=== PATIENT | male | born 1960 | race Caucasian/White ===

== ENCOUNTER 2017-01-11 17:14 | Emergency (ER) | payer OTHER ==
[~2017-01-11] VITALS: Ht 180.3 cm; Wt 100.0 kg
[2017-01-11] MEDS ORDERED: IBUP-2071 PO (17:24)
[2017-01-11] MEDS ORDERED: [UNRECOGNIZED DRUG - CODE] PO (17:24)
[2017-01-11] MEDS ORDERED: KETOROLAC TROMETHAMINE 60 MG/2 ML VIAL IM ONE (18:45)
[2017-01-11 19:27] VITALS: BP 136/82
== END 2017-01-11 19:31 | disposition home or self-care (01) ==
LOC: EMS 17:16
DX: M54.31 Sciatica, right side (principal)
CPT/HCPCS: 96372; 99283; J1885

== ENCOUNTER 2017-12-02 05:55 | Inpatient (IN) | payer MEDICAID, OTHER ==
[~2017-12-02] VITALS: Ht 179.1 cm; Wt 93.4 kg
[~2017-12-02 05:55] MED LIST: IBUP-2071 PO; [UNRECOGNIZED DRUG - CODE] PO
[2017-12-02] MEDS ORDERED: PARO20TA24 PO (06:05)
[2017-12-02] MEDS ORDERED: TRAZ-220 PO (06:06)
[2017-12-02 06:48] LABS: BASOPHILS % (AUTO) 0.5 % (0.0-2.0); HEMATOCRIT 38.8 % (41-53); HEMOGLOBIN 14.2 g/dL (13.5-17.5); LYMPHOCYTES # (AUTO) 0.6 K/uL (1.0-4.8); LYMPHOCYTES % (AUTO) 12.3 % (22.0-44.0); MEAN CORPUSCULAR HEMOGLOBIN 32.1 pg (26.0-34.0); MEAN CORPUSCULAR HGB CONC 36.6 G/dL (31.0-37.0); MEAN CORPUSCULAR VOLUME 88 fL (80-100); MONOCYTES # (AUTO) 0.4 K/uL (0.1-1.0); MONOCYTES % (AUTO) 8.2 % (2.0-9.0); NEUTROPHILS # (AUTO) 3.7 K/uL (1.8-7.7); PLATELET COUNT (AUTO) 171 K/uL (150-450); RED BLOOD CELL COUNT(AUTO) 4.41 MIL/uL (4.50-5.90); RED CELL DISTRIBUTION WIDTH 13.3 % (11.5-14.5)
[2017-12-02 07:09] LABS: AMPHET/METH SCREEN,URINE NEGATIVE (NEGATIVE); BARBITURATE SCREEN, URINE NEGATIVE (NEGATIVE); BENZODIAZEPINES SCREEN,URINE NEGATIVE (NEGATIVE); CANNABINOID SCREEN,URINE NEGATIVE (NEGATIVE); COCAINE SCREEN,URINE NEGATIVE (NEGATIVE); METHADONE SCREEN, URINE NEGATIVE (NEGATIVE); OPIATE SCREEN,URINE NEGATIVE (NEGATIVE)
[2017-12-02 07:10] LABS: PHENCYCLIDINE SCREEN,URINE NEGATIVE (NEGATIVE)
[2017-12-02 07:14] LABS: ANION GAP 12 mmol/L (8-16); CALCIUM, TOTAL 8.8 mg/dL (8.8-10.5); CARBON DIOXIDE 24 mmol/L (22-29); CHLORIDE 98 mmol/L (98-107); CREATININE 1.16 mg/dL (0.60-1.30); GLOMERULAR FILTR. RATE CALC > 60 mL/min (>60); GLUCOSE,RANDOM 120 mg/dL (70-110); POTASSIUM 3.4 mmol/L (3.5-5.1); SODIUM SERUM 134 mmol/L (136-145); UREA NITROGEN, BLOOD 6 mg/dL (7-18)
[2017-12-02 07:20] LABS: ALANINE AMINOTRANSFERASE 16 U/L (12-78); ALBUMIN 3.7 g/dL (3.4-5.0); ALKALINE PHOSPHATASE 48 U/L (46-116); ASPARTATE AMINOTRANSFERASE 30 U/L (15-37); BILIRUBIN,TOTAL 0.8 mg/dL (0.1-1.0); TOTAL PROTEIN, SERUM 6.9 g/dL (6.4-8.2)
[2017-12-02] MEDS ORDERED: LORazepam 2 MG TABLET PO ONE (09:00)
[2017-12-02] MEDS ORDERED: PARoxetine HCL 20 MG TABLET PO ONE (09:00)
[2017-12-02] MEDS ORDERED: ZOLPIDEM TARTRATE 10 MG TABLET PO PRN (11:30)
[2017-12-02] MEDS ORDERED: LORazepam 2 MG TABLET PO PRN (11:30)
[2017-12-02] MEDS ORDERED: HALOPERIDOL 5 MG TABLET PO PRN (11:30)
[2017-12-02] MEDS ORDERED: POTASSIUM CHLORIDE 20 MEQ ER TABLET PO ONE (13:00)
[2017-12-02 13:27] VITALS: BP 159/81
[2017-12-02] MEDS ORDERED: ACETAMINOPHEN 325 MG TABLET PO PRN (15:00)
[2017-12-02] MEDS ORDERED: ONDANSETRON HCL 4 MG TABLET PO PRN (15:00)
[2017-12-02] MEDS ORDERED: LOPERAMIDE HCL 2 MG CAPSULE PO PRN (15:00)
[2017-12-02] MEDS ORDERED: MAGNESIUM HYDROXIDE SUSPENSION 30 ML UDCUP PO PRN (15:00)
[2017-12-02] MEDS ORDERED: MAG HYDROX/AL HYDROX/SIMETH ES 30 ML SUSPENSION UDCUP PO PRN (15:00)
[2017-12-02] MEDS ORDERED: PETROLATUM,WHITE 71 GM JELLY TP PRN (15:00)
[2017-12-02] MEDS ORDERED: DOCUSATE SODIUM 100 MG CAPSULE PO PRN (15:00)
[2017-12-02] MEDS ORDERED: ALBUTEROL SULFATE HFA 90 MCG/PUFF 8 GM INHALER IH PRN (15:00)
[2017-12-02] MEDS ORDERED: GuaiFENesin/D-METHORPHAN [SUGAR-FREE] 200-20MG/10 ML SYRUP UDCUP PO PRN (15:00)
[2017-12-02] MEDS ORDERED: CloNIDine HCL 0.1 MG TABLET PO PRN (15:00)
[2017-12-02] MEDS: BusPIRone HCL 5 MG TABLET PO SCH (17:00)
[2017-12-02] MEDS ORDERED: PARoxetine HCL 20 MG TABLET PO SCH (21:00)
[2017-12-02 21:01] VITALS: BP 147/85
[2017-12-02] MEDS: TraZODone HCL 150 MG TABLET PO SCH (21:33)
[2017-12-03 06:39] LABS: BASOPHILS % (AUTO) 0.7 % (0.0-2.0); EOSINOPHILS % (AUTO) 3.9 % (1.0-6.0); HEMATOCRIT 37.8 % (41-53); HEMOGLOBIN 13.7 g/dL (13.5-17.5); LYMPHOCYTES % (AUTO) 19.2 % (22.0-44.0); MEAN CORPUSCULAR HEMOGLOBIN 32.2 pg (26.0-34.0); MEAN CORPUSCULAR HGB CONC 36.4 G/dL (31.0-37.0); MEAN CORPUSCULAR VOLUME 89 fL (80-100); MONOCYTES # (AUTO) 0.5 K/uL (0.1-1.0); MONOCYTES % (AUTO) 9.5 % (2.0-9.0); NEUTROPHILS # (AUTO) 3.6 K/uL (1.8-7.7); NEUTROPHILS % (AUTO) 66.7 % (40.0-70.0); PLATELET COUNT (AUTO) 184 K/uL (150-450); RED BLOOD CELL COUNT(AUTO) 4.26 MIL/uL (4.50-5.90); RED CELL DISTRIBUTION WIDTH 13.7 % (11.5-14.5)
[2017-12-03 07:03] LABS: HEMOGLOBIN A1C 4.9 % (4.5-6.2)
[2017-12-03 07:15] LABS: ALANINE AMINOTRANSFERASE 19 U/L (12-78); ALBUMIN 3.2 g/dL (3.4-5.0); ALKALINE PHOSPHATASE 40 U/L (46-116); ANION GAP 8 mmol/L (8-16); ASPARTATE AMINOTRANSFERASE 17 U/L (15-37); BILIRUBIN,TOTAL 0.3 mg/dL (0.1-1.0); CALCIUM, TOTAL 8.6 mg/dL (8.8-10.5); CARBON DIOXIDE 28 mmol/L (22-29); CHLORIDE 107 mmol/L (98-107); CHOL/HDL RATIO 2.4 (4.2-7.3); CHOLESTEROL 146 mg/dL (131-200); CREATININE 1.08 mg/dL (0.60-1.30); GLOMERULAR FILTR. RATE CALC > 60 mL/min (>60); GLUCOSE,RANDOM 113 mg/dL (70-110); HDL CHOLESTEROL 62 mg/dL (40-60); LDL CHOL (CALC.) 63 mg/dL (0-130); SODIUM SERUM 143 mmol/L (136-145); THYROID STIMULATING HORMONE 1.79 uIU/mL (0.36-3.74); TOTAL PROTEIN, SERUM 5.9 g/dL (6.4-8.2); TRIGLYCERIDES 106 mg/dL (15-150); UREA NITROGEN, BLOOD 9 mg/dL (7-18)
[2017-12-03] MEDS: BusPIRone HCL 5 MG TABLET PO SCH (09:38)
[2017-12-03] MEDS: LORazepam 2 MG TABLET PO PRN ×2 (09:41→16:26)
[2017-12-03 10:18] VITALS: BP 132/84
[2017-12-03] MEDS ORDERED: PARoxetine HCL 20 MG TABLET PO SCH (12:30)
[2017-12-03] MEDS: BusPIRone HCL 10 MG TABLET PO SCH ×2 (13:43→16:26)
[2017-12-03 19:04] VITALS: BP 147/82
[2017-12-03] MEDS: PARoxetine HCL 20 MG TABLET PO SCH (20:33)
[2017-12-03] MEDS: TraZODone HCL 150 MG TABLET PO SCH (21:39)
[2017-12-04] MEDS: BusPIRone HCL 10 MG TABLET PO SCH ×3 (08:48→17:30)
[2017-12-04] MEDS: LORazepam 2 MG TABLET PO PRN ×2 (08:50→16:01)
[2017-12-04] MEDS: NICOTINE 21 MG/24 HOUR PATCH TD SCH (09:00)
[2017-12-04 09:02] VITALS: BP 138/81
[2017-12-04 18:35] VITALS: BP 135/80
[2017-12-04] MEDS: PARoxetine HCL 20 MG TABLET PO SCH (21:25)
[2017-12-04] MEDS: TraZODone HCL 150 MG TABLET PO SCH (21:25)
[2017-12-05] MEDS: BusPIRone HCL 10 MG TABLET PO SCH ×3 (08:58→16:39)
[2017-12-05] MEDS: LORazepam 2 MG TABLET PO PRN ×2 (08:59→16:40)
[2017-12-05] MEDS: NICOTINE 21 MG/24 HOUR PATCH TD SCH (09:00)
[2017-12-05 09:16] VITALS: BP 137/87
[2017-12-05] MEDS: IBUPROFEN 400 MG TABLET PO PRN (14:36)
[2017-12-05] MEDS: PARoxetine HCL 20 MG TABLET PO SCH (14:36)
[2017-12-05 17:32] VITALS: BP 149/89
[2017-12-05] MEDS: TraZODone HCL 150 MG TABLET PO SCH (20:35)
[2017-12-06] MEDS: BusPIRone HCL 10 MG TABLET PO SCH ×3 (08:48→16:56)
[2017-12-06] MEDS: PARoxetine HCL 20 MG TABLET PO SCH (08:48)
[2017-12-06] MEDS: NICOTINE 21 MG/24 HOUR PATCH TD SCH (08:50)
[2017-12-06] MEDS: LORazepam 2 MG TABLET PO PRN ×2 (08:50→17:40)
[2017-12-06 08:59] VITALS: BP 119/78
[2017-12-06] MEDS: IBUPROFEN 400 MG TABLET PO PRN (11:08)
[2017-12-06] MEDS ORDERED: BUSP10TA23 PO (14:51)
[2017-12-06 17:30] VITALS: BP 130/86
[2017-12-06] MEDS: TraZODone HCL 150 MG TABLET PO SCH (20:22)
[2017-12-07] MEDS: PARoxetine HCL 20 MG TABLET PO SCH (09:47)
[2017-12-07] MEDS: BusPIRone HCL 10 MG TABLET PO SCH (09:47)
== END 2017-12-07 07:30 | disposition home or self-care (01) | DRG 751 ==
LOC: EMS 05:55 → 3EI 12:24
PROVIDERS: ADMIT Psychiatry & Neurology Psychiatry; ATTEND Psychiatry & Neurology Psychiatry
DX: F33.2 Major depressive disorder, recurrent severe without psychotic features (principal); R45.851 Suicidal ideations; E88.09 Other disorders of plasma-protein metabolism, not elsewhere classified; F17.200 Nicotine dependence, unspecified, uncomplicated; E87.6 Hypokalemia; F41.9 Anxiety disorder, unspecified; I10 Essential (primary) hypertension; M54.30 Sciatica, unspecified side; Z59.0 Homelessness; Z79.899 Other long term (current) drug therapy; Z81.8 Family history of other mental and behavioral disorders; Z71.6 Tobacco abuse counseling
CPT/HCPCS: 83036; 84443; 99285; G0480

== ENCOUNTER 2018-08-08 18:22 | Inpatient (IN) | payer MEDICAID, OTHER ==
[~2018-08-08] VITALS: Ht 180.3 cm; Wt 87.1 kg
[~2018-08-08 18:22] MED LIST changes: +BUSP10TA23 PO; -IBUP-2071 PO; +PARO20TA24 PO; +TRAZ-220 PO; -[UNRECOGNIZED DRUG - CODE] PO
[2018-08-08] MEDS ORDERED: LORA2TAB2 PO (18:32)
[2018-08-08 18:54] LABS: BASOPHILS % (AUTO) 0.7 % (0.0-2.0); EOSINOPHILS % (AUTO) 0.9 % (1.0-6.0); HEMATOCRIT 37.4 % (41-53); LYMPHOCYTES # (AUTO) 1.4 K/uL (1.0-4.8); LYMPHOCYTES % (AUTO) 18.6 % (22.0-44.0); MEAN CORPUSCULAR HEMOGLOBIN 30.5 pg (26.0-34.0); MEAN CORPUSCULAR HGB CONC 34.9 G/dL (31.0-37.0); MEAN CORPUSCULAR VOLUME 88 fL (80-100); MONOCYTES # (AUTO) 0.6 K/uL (0.1-1.0); MONOCYTES % (AUTO) 8.3 % (2.0-9.0); NEUTROPHILS # (AUTO) 5.2 K/uL (1.8-7.7); NEUTROPHILS % (AUTO) 71.5 % (40.0-70.0); PLATELET COUNT (AUTO) 203 K/uL (150-450); RED BLOOD CELL COUNT(AUTO) 4.27 MIL/uL (4.50-5.90); RED CELL DISTRIBUTION WIDTH 14.2 % (11.5-14.5)
[2018-08-08 19:11] LABS: ANION GAP 7 mmol/L (8-16); CALCIUM, TOTAL 9.1 mg/dL (8.8-10.5); CARBON DIOXIDE 28 mmol/L (22-29); CHLORIDE 97 mmol/L (98-107); CREATININE 1.23 mg/dL (0.60-1.30); GLOMERULAR FILTR. RATE CALC > 60 mL/min (>60); GLUCOSE,RANDOM 116 mg/dL (70-110); SODIUM SERUM 132 mmol/L (136-145); UREA NITROGEN, BLOOD 15 mg/dL (7-18)
[2018-08-08 19:17] LABS: ALANINE AMINOTRANSFERASE 9 U/L (12-78); ALBUMIN 4.1 g/dL (3.4-5.0); ALKALINE PHOSPHATASE 57 U/L (46-116); ASPARTATE AMINOTRANSFERASE 20 U/L (15-37); BILIRUBIN,TOTAL 1.3 mg/dL (0.1-1.0)
[2018-08-08] MEDS ORDERED: LORazepam 2 MG TABLET PO ONE (20:00)
[2018-08-08 21:30] LABS: AMPHET/METH SCREEN,URINE NEGATIVE (NEGATIVE); BARBITURATE SCREEN, URINE NEGATIVE (NEGATIVE); BENZODIAZEPINES SCREEN,URINE NEGATIVE (NEGATIVE); CANNABINOID SCREEN,URINE NEGATIVE (NEGATIVE); COCAINE SCREEN,URINE NEGATIVE (NEGATIVE); METHADONE SCREEN, URINE NEGATIVE (NEGATIVE); OPIATE SCREEN,URINE NEGATIVE (NEGATIVE)
[2018-08-08 21:37] LABS: PHENCYCLIDINE SCREEN,URINE NEGATIVE (NEGATIVE)
[2018-08-09] MEDS: LORazepam 2 MG TABLET PO PRN ×4 (00:08→21:06)
[2018-08-09] MEDS: ZOLPIDEM TARTRATE 10 MG TABLET PO PRN ×2 (00:08→21:06)
[2018-08-09 00:50] VITALS: BP 143/77
[2018-08-09] MEDS ORDERED: GuaiFENesin/D-METHORPHAN [SUGAR-FREE] 200-20MG/10 ML SYRUP UDCUP PO PRN (06:00)
[2018-08-09] MEDS ORDERED: NICOTINE 14 MG/24 HOUR PATCH TD PRN (06:00)
[2018-08-09] MEDS ORDERED: PETROLATUM,WHITE 28 GM JELLY TP PRN (06:00)
[2018-08-09] MEDS ORDERED: CloNIDine HCL 0.1 MG TABLET PO PRN (06:00)
[2018-08-09] MEDS ORDERED: ALBUTEROL SULFATE HFA 90 MCG/PUFF 8 GM INHALER IH PRN (06:00)
[2018-08-09] MEDS ORDERED: LOPERAMIDE HCL 2 MG CAPSULE PO PRN (06:00)
[2018-08-09] MEDS ORDERED: MAG HYDROX/AL HYDROX/SIMETH ES 30 ML SUSPENSION UDCUP PO PRN (06:00)
[2018-08-09] MEDS ORDERED: MAGNESIUM HYDROXIDE SUSPENSION 30 ML UDCUP PO PRN (06:00)
[2018-08-09] MEDS ORDERED: DOCUSATE SODIUM 100 MG CAPSULE PO PRN (06:00)
[2018-08-09] MEDS ORDERED: ONDANSETRON HCL 4 MG TABLET PO PRN (06:00)
[2018-08-09] MEDS ORDERED: ACETAMINOPHEN 325 MG TABLET PO PRN (06:00)
[2018-08-09 09:02] LABS: CHOL/HDL RATIO 2.2 (4.2-7.3)
[2018-08-09 10:13] VITALS: BP 127/93
[2018-08-09] MEDS: PARoxetine HCL 20 MG TABLET PO SCH (12:32)
[2018-08-09] MEDS: BusPIRone HCL 10 MG TABLET PO SCH ×2 (12:33→16:43)
[2018-08-09] MEDS: IBUPROFEN 400 MG TABLET PO PRN (14:26)
[2018-08-09 16:00] VITALS: BP 131/77
[2018-08-09] MEDS: HALOPERIDOL 5 MG TABLET PO PRN (16:43)
[2018-08-10 00:02] VITALS: BP 132/81
[2018-08-10] MEDS: HALOPERIDOL 5 MG TABLET PO PRN ×2 (02:18→23:50)
[2018-08-10] MEDS: LORazepam 2 MG TABLET PO PRN ×4 (02:18→20:17)
[2018-08-10] MEDS: BusPIRone HCL 10 MG TABLET PO SCH ×3 (07:57→17:03)
[2018-08-10] MEDS: PARoxetine HCL 20 MG TABLET PO SCH (07:57)
[2018-08-10 08:39] LABS: BASOPHILS % (AUTO) 0.7 % (0.0-2.0); EOSINOPHILS % (AUTO) 3.4 % (1.0-6.0); HEMATOCRIT 41.8 % (41-53); HEMOGLOBIN 14.1 g/dL (13.5-17.5); LYMPHOCYTES # (AUTO) 1.1 K/uL (1.0-4.8); LYMPHOCYTES % (AUTO) 22.7 % (22.0-44.0); MEAN CORPUSCULAR HEMOGLOBIN 30.3 pg (26.0-34.0); MEAN CORPUSCULAR HGB CONC 33.8 G/dL (31.0-37.0); MEAN CORPUSCULAR VOLUME 90 fL (80-100); MONOCYTES # (AUTO) 0.3 K/uL (0.1-1.0); MONOCYTES % (AUTO) 6.1 % (2.0-9.0); NEUTROPHILS # (AUTO) 3.1 K/uL (1.8-7.7); NEUTROPHILS % (AUTO) 67.1 % (40.0-70.0); PLATELET COUNT (AUTO) 184 K/uL (150-450); RED BLOOD CELL COUNT(AUTO) 4.66 MIL/uL (4.50-5.90); RED CELL DISTRIBUTION WIDTH 14.8 % (11.5-14.5)
[2018-08-10 09:17] LABS: ALANINE AMINOTRANSFERASE 9 U/L (12-78); ALBUMIN 3.8 g/dL (3.4-5.0); ALKALINE PHOSPHATASE 54 U/L (46-116); ANION GAP 11 mmol/L (8-16); ASPARTATE AMINOTRANSFERASE 28 U/L (15-37); BILIRUBIN,TOTAL 1.1 mg/dL (0.1-1.0); CALCIUM, TOTAL 8.9 mg/dL (8.8-10.5); CARBON DIOXIDE 25 mmol/L (22-29); CHLORIDE 101 mmol/L (98-107); CREATININE 1.08 mg/dL (0.60-1.30); GLOMERULAR FILTR. RATE CALC > 60 mL/min (>60); GLUCOSE,RANDOM 133 mg/dL (70-110); POTASSIUM 4.4 mmol/L (3.5-5.1); SODIUM SERUM 137 mmol/L (136-145); THYROID STIMULATING HORMONE 3.03 uIU/mL (0.36-3.74); TOTAL PROTEIN, SERUM 7.2 g/dL (6.4-8.2); UREA NITROGEN, BLOOD 11 mg/dL (7-18)
[2018-08-10 09:37] VITALS: BP 131/83
[2018-08-10 16:32] VITALS: BP 136/82
[2018-08-10] MEDS: IBUPROFEN 400 MG TABLET PO PRN (17:21)
[2018-08-10] MEDS: ZOLPIDEM TARTRATE 10 MG TABLET PO PRN (20:17)
[2018-08-11 00:09] VITALS: BP 126/69
[2018-08-11] MEDS: LORazepam 2 MG TABLET PO PRN ×4 (06:41→19:07)
[2018-08-11] MEDS: BusPIRone HCL 10 MG TABLET PO SCH ×3 (08:10→16:19)
[2018-08-11] MEDS: PARoxetine HCL 20 MG TABLET PO SCH (08:10)
[2018-08-11 08:12] VITALS: BP 115/76
[2018-08-11] MEDS: HALOPERIDOL 5 MG TABLET PO PRN (16:19)
[2018-08-11 16:40] VITALS: BP 136/97
[2018-08-11] MEDS: ZOLPIDEM TARTRATE 10 MG TABLET PO PRN (20:35)
[2018-08-12 01:12] VITALS: BP 119/85
[2018-08-12] MEDS: HALOPERIDOL 5 MG TABLET PO PRN ×2 (01:13→21:00)
[2018-08-12] MEDS: LORazepam 2 MG TABLET PO PRN ×2 (06:38→16:41)
[2018-08-12] MEDS: IBUPROFEN 400 MG TABLET PO PRN (07:09)
[2018-08-12 08:05] VITALS: BP 120/62
[2018-08-12] MEDS: BusPIRone HCL 10 MG TABLET PO SCH (08:17)
[2018-08-12] MEDS: PARoxetine HCL 20 MG TABLET PO SCH (08:17)
[2018-08-12 16:06] VITALS: BP 139/87
[2018-08-12] MEDS: BusPIRone HCL 15 MG TABLET PO SCH ×2 (16:41→21:00)
[2018-08-12] MEDS: ZOLPIDEM TARTRATE 10 MG TABLET PO PRN (21:00)
[2018-08-13] MEDS: LORazepam 2 MG TABLET PO PRN ×4 (00:47→20:04)
[2018-08-13] MEDS: HALOPERIDOL 5 MG TABLET PO PRN ×2 (00:47→07:00)
[2018-08-13 00:49] VITALS: BP 125/81
[2018-08-13] MEDS: PARoxetine HCL 20 MG TABLET PO SCH (08:12)
[2018-08-13] MEDS: BusPIRone HCL 15 MG TABLET PO SCH ×3 (08:13→20:04)
[2018-08-13 08:35] VITALS: BP 128/66
[2018-08-13 16:30] VITALS: BP 120/80
[2018-08-13] MEDS: TraZODone HCL 150 MG TABLET PO SCH (20:04)
[2018-08-14 02:02] VITALS: BP 117/84
[2018-08-14] MEDS: LORazepam 2 MG TABLET PO PRN ×4 (06:00→20:35)
[2018-08-14 08:33] VITALS: BP 114/62
[2018-08-14] MEDS: PARoxetine HCL 20 MG TABLET PO SCH (08:40)
[2018-08-14] MEDS: BusPIRone HCL 15 MG TABLET PO SCH ×3 (08:41→20:38)
[2018-08-14] MEDS: BuPROPion HCL XL 150 MG ER TABLET PO SCH (11:05)
[2018-08-14] MEDS: HALOPERIDOL 5 MG TABLET PO PRN (16:22)
[2018-08-14] MEDS: IBUPROFEN 400 MG TABLET PO PRN (16:22)
[2018-08-14 16:35] VITALS: BP 123/77
[2018-08-14] MEDS: ZOLPIDEM TARTRATE 10 MG TABLET PO PRN (20:35)
[2018-08-14] MEDS: TraZODone HCL 150 MG TABLET PO SCH (20:35)
[2018-08-15] MEDS: LORazepam 2 MG TABLET PO PRN ×3 (05:53→20:27)
[2018-08-15 06:10] VITALS: BP 131/84
[2018-08-15 08:12] VITALS: BP 114/75
[2018-08-15] MEDS: BuPROPion HCL XL 150 MG ER TABLET PO SCH (08:22)
[2018-08-15] MEDS: PARoxetine HCL 20 MG TABLET PO SCH (08:22)
[2018-08-15] MEDS: BusPIRone HCL 15 MG TABLET PO SCH ×3 (08:22→20:27)
[2018-08-15] MEDS: IBUPROFEN 400 MG TABLET PO PRN (10:26)
[2018-08-15 16:00] VITALS: BP 120/88
[2018-08-15] MEDS: ZOLPIDEM TARTRATE 10 MG TABLET PO PRN (20:27)
[2018-08-15] MEDS: TraZODone HCL 150 MG TABLET PO SCH (20:27)
[2018-08-15] MEDS ORDERED: TAMSULOSIN HCL 0.4 MG CAPSULE PO SCH (21:00)
[2018-08-16 00:07] VITALS: BP 115/78
[2018-08-16] MEDS: LORazepam 2 MG TABLET PO PRN ×2 (05:41→11:46)
[2018-08-16] MEDS: BusPIRone HCL 15 MG TABLET PO SCH (08:10)
[2018-08-16] MEDS: PARoxetine HCL 20 MG TABLET PO SCH (08:10)
[2018-08-16 08:19] VITALS: BP 119/64
[2018-08-16] MEDS ORDERED: BuPROPion HCL XL 150 MG ER TABLET PO SCH (09:00)
[2018-08-16] MEDS ORDERED: BUPR-47 PO (10:09)
[2018-08-16] MEDS ORDERED: PARO-37 PO (10:09)
[2018-08-16] MEDS ORDERED: BUPR-93 PO (10:31)
[2018-08-16] MEDS ORDERED: BUSP15 PO ×2 (10:31→13:39)
[2018-08-16] MEDS ORDERED: PARO20TA24 PO (10:42)
[2018-08-16] MEDS ORDERED: TAMS-1 PO (10:43)
[2018-08-16] MEDS ORDERED: TRAZ150 PO (13:39)
== END 2018-08-16 16:20 | disposition home or self-care (01) | DRG 751 ==
LOC: EMS 18:23 → B3A 20:52
DX: F33.2 Major depressive disorder, recurrent severe without psychotic features (principal); E87.1 Hypo-osmolality and hyponatremia; R45.851 Suicidal ideations; D64.9 Anemia, unspecified; R17 Unspecified jaundice; F41.9 Anxiety disorder, unspecified; F19.10 Other psychoactive substance abuse, uncomplicated; Z59.0 Homelessness; Z79.899 Other long term (current) drug therapy; Z71.51 Drug abuse counseling and surveillance of drug abuser
CPT/HCPCS: 83036; 84443; G0480

== ENCOUNTER 2018-12-31 07:36 | Inpatient (IN) | payer MEDICAID ==
[~2018-12-31] VITALS: Ht 180.3 cm; Wt 84.7 kg
[~2018-12-31 07:36] MED LIST changes: +BUPR-47 PO; +BUPR-93 PO; -BUSP10TA23 PO; +BUSP15 PO; +PARO-37 PO; +TAMS-1 PO; -TRAZ-220 PO; +TRAZ150 PO
[2018-12-31 09:50] LABS: BASOPHILS % (AUTO) 0.6 % (0.0-2.0); EOSINOPHILS % (AUTO) 0.7 % (1.0-6.0); HEMATOCRIT 39.8 % (41-53); HEMOGLOBIN 13.4 g/dL (13.5-17.5); LYMPHOCYTES # (AUTO) 0.7 K/uL (1.0-4.8); LYMPHOCYTES % (AUTO) 13.4 % (22.0-44.0); MEAN CORPUSCULAR HEMOGLOBIN 30.8 pg (26.0-34.0); MEAN CORPUSCULAR HGB CONC 33.8 G/dL (31.0-37.0); MEAN CORPUSCULAR VOLUME 91 fL (80-100); MONOCYTES # (AUTO) 0.3 K/uL (0.1-1.0); MONOCYTES % (AUTO) 5.9 % (2.0-9.0); NEUTROPHILS % (AUTO) 79.4 % (40.0-70.0); PLATELET COUNT (AUTO) 151 K/uL (150-450); RED BLOOD CELL COUNT(AUTO) 4.37 MIL/uL (4.50-5.90); RED CELL DISTRIBUTION WIDTH 13.8 % (11.5-14.5)
[2018-12-31 10:00] LABS: AMPHET/METH SCREEN,URINE NEGATIVE (NEGATIVE); BARBITURATE SCREEN, URINE NEGATIVE (NEGATIVE); BENZODIAZEPINES SCREEN,URINE NEGATIVE (NEGATIVE); CANNABINOID SCREEN,URINE NEGATIVE (NEGATIVE); COCAINE SCREEN,URINE NEGATIVE (NEGATIVE); METHADONE SCREEN, URINE NEGATIVE (NEGATIVE); OPIATE SCREEN,URINE NEGATIVE (NEGATIVE)
[2018-12-31 10:01] LABS: PHENCYCLIDINE SCREEN,URINE NEGATIVE (NEGATIVE)
[2018-12-31 10:02] LABS: ANION GAP 8 mmol/L (8-16); CALCIUM, TOTAL 9.1 mg/dL (8.8-10.5); CARBON DIOXIDE 25 mmol/L (22-29); CHLORIDE 105 mmol/L (98-107); GLOMERULAR FILTR. RATE CALC > 60 mL/min (>60); GLUCOSE,RANDOM 120 mg/dL (70-110); POTASSIUM 3.8 mmol/L (3.5-5.1); SODIUM SERUM 138 mmol/L (136-145); UREA NITROGEN, BLOOD 7 mg/dL (7-18)
[2018-12-31 10:08] LABS: ALANINE AMINOTRANSFERASE 13 U/L (12-78); ALBUMIN 3.8 g/dL (3.4-5.0); ALKALINE PHOSPHATASE 47 U/L (46-116); ASPARTATE AMINOTRANSFERASE 15 U/L (15-37); BILIRUBIN,TOTAL 0.6 mg/dL (0.1-1.0); TOTAL PROTEIN, SERUM 6.7 g/dL (6.4-8.2)
[2018-12-31] MEDS ORDERED: LORazepam 2 MG TABLET PO PRN (10:45)
[2018-12-31] MEDS ORDERED: LORazepam 1 MG TABLET PO ONE (12:00)
[2018-12-31 14:45] VITALS: BP 144/87
[2018-12-31 16:27] VITALS: BP 130/83
[2018-12-31] MEDS: HALOPERIDOL 5 MG TABLET PO PRN (17:20)
[2018-12-31] MEDS ORDERED: RIZATRIPTAN BENZOATE 10 MG TABLET PO PRN (17:30)
[2018-12-31] MEDS ORDERED: MAGNESIUM HYDROXIDE SUSPENSION 30 ML UDCUP PO PRN (19:45)
[2018-12-31] MEDS ORDERED: NICOTINE 14 MG/24 HOUR PATCH TD PRN (19:45)
[2018-12-31] MEDS ORDERED: ONDANSETRON HCL 4 MG TABLET PO PRN (19:45)
[2018-12-31] MEDS ORDERED: DOCUSATE SODIUM 100 MG CAPSULE PO PRN (19:45)
[2018-12-31] MEDS ORDERED: ACETAMINOPHEN 325 MG TABLET PO PRN (19:45)
[2018-12-31] MEDS ORDERED: GuaiFENesin/D-METHORPHAN [SUGAR-FREE] 200-20MG/10 ML SYRUP UDCUP PO PRN (19:45)
[2018-12-31] MEDS ORDERED: MAG HYDROX/AL HYDROX/SIMETH ES 30 ML SUSPENSION UDCUP PO PRN (19:45)
[2018-12-31] MEDS ORDERED: CloNIDine HCL 0.1 MG TABLET PO PRN (19:45)
[2018-12-31] MEDS ORDERED: ALBUTEROL SULFATE HFA 90 MCG/PUFF 8 GM INHALER IH PRN (19:45)
[2018-12-31] MEDS ORDERED: PETROLATUM,WHITE 28 GM JELLY TP PRN (19:45)
[2018-12-31] MEDS ORDERED: LOPERAMIDE HCL 2 MG CAPSULE PO PRN (19:45)
[2018-12-31] MEDS ORDERED: IBUPROFEN 400 MG TABLET PO PRN (19:45)
[2018-12-31] MEDS: TAMSULOSIN HCL 0.4 MG CAPSULE PO SCH (20:28)
[2018-12-31] MEDS: ZOLPIDEM TARTRATE 10 MG TABLET PO PRN (20:28)
[2018-12-31] MEDS ORDERED: TAMSULOSIN HCL 0.4 MG CAPSULE PO SCH (21:00)
[2019-01-01 06:41] VITALS: BP 132/79
[2019-01-01 08:28] LABS: HEMOGLOBIN A1C 5.1 % (4.5-6.2)
[2019-01-01 08:31] LABS: CHOL/HDL RATIO 2.6 (4.2-7.3); THYROID STIMULATING HORMONE 1.27 uIU/mL (0.36-3.74)
[2019-01-01] MEDS: RANITIDINE HCL 150 MG TABLET PO SCH (08:33)
[2019-01-01] MEDS: PARoxetine HCL 20 MG TABLET PO SCH (11:07)
[2019-01-01 15:22] VITALS: BP 119/85
[2019-01-01 16:00] VITALS: BP 122/88
[2019-01-01] MEDS: LORazepam 1 MG TABLET PO PRN (16:02)
[2019-01-01] MEDS: HALOPERIDOL 5 MG TABLET PO PRN (16:02)
[2019-01-01] MEDS ORDERED: DiphenhydrAMINE HCL 25 MG CAPSULE PO ONE (18:00)
[2019-01-01] MEDS: TAMSULOSIN HCL 0.4 MG CAPSULE PO SCH (20:12)
[2019-01-01] MEDS: TraZODone HCL 150 MG TABLET PO SCH (20:12)
[2019-01-01] MEDS: ZOLPIDEM TARTRATE 10 MG TABLET PO PRN (20:12)
[2019-01-02 04:22] VITALS: BP 115/72
[2019-01-02 08:00] VITALS: BP 117/67
[2019-01-02] MEDS: LORazepam 1 MG TABLET PO PRN ×2 (08:31→13:22)
[2019-01-02] MEDS: RANITIDINE HCL 150 MG TABLET PO SCH (08:31)
[2019-01-02] MEDS: PARoxetine HCL 20 MG TABLET PO SCH (08:31)
[2019-01-02] MEDS: HALOPERIDOL 5 MG TABLET PO PRN ×2 (09:25→16:08)
[2019-01-02 16:10] VITALS: BP 130/76
[2019-01-02] MEDS: ZOLPIDEM TARTRATE 10 MG TABLET PO PRN (20:32)
[2019-01-02] MEDS: TraZODone HCL 150 MG TABLET PO SCH (20:32)
[2019-01-02] MEDS: TAMSULOSIN HCL 0.4 MG CAPSULE PO SCH (20:32)
[2019-01-03 05:14] VITALS: BP 124/78
[2019-01-03 08:00] VITALS: BP 135/79
[2019-01-03] MEDS: RANITIDINE HCL 150 MG TABLET PO SCH (08:37)
[2019-01-03] MEDS: PARoxetine HCL 20 MG TABLET PO SCH (08:37)
[2019-01-03] MEDS: LORazepam 1 MG TABLET PO PRN ×2 (09:55→16:19)
[2019-01-03 17:29] VITALS: BP 131/81
[2019-01-03] MEDS: TraZODone HCL 150 MG TABLET PO SCH (20:34)
[2019-01-03] MEDS: TAMSULOSIN HCL 0.4 MG CAPSULE PO SCH (20:34)
[2019-01-04] MEDS: LORazepam 1 MG TABLET PO PRN ×3 (07:05→19:26)
[2019-01-04 08:14] VITALS: BP 121/69
[2019-01-04] MEDS: PARoxetine HCL 20 MG TABLET PO SCH (08:56)
[2019-01-04] MEDS: RANITIDINE HCL 150 MG TABLET PO SCH (08:56)
[2019-01-04] MEDS: BuPROPion HCL XL 150 MG ER TABLET PO SCH (15:21)
[2019-01-04 17:53] VITALS: BP 121/76
[2019-01-04] MEDS: ZOLPIDEM TARTRATE 10 MG TABLET PO PRN (20:37)
[2019-01-04] MEDS: TraZODone HCL 150 MG TABLET PO SCH (20:37)
[2019-01-04] MEDS: TAMSULOSIN HCL 0.4 MG CAPSULE PO SCH (20:37)
[2019-01-05 06:12] VITALS: BP 118/68
[2019-01-05] MEDS: LORazepam 1 MG TABLET PO PRN (07:03)
[2019-01-05 08:00] VITALS: BP 122/61
[2019-01-05] MEDS ORDERED: OMEP20 PO (09:13)
[2019-01-05] MEDS ORDERED: BUPR-93 PO (09:13)
[2019-01-05] MEDS ORDERED: TRAZ150 PO (09:13)
[2019-01-05] MEDS: RANITIDINE HCL 150 MG TABLET PO SCH (09:28)
[2019-01-05] MEDS: PARoxetine HCL 20 MG TABLET PO SCH (09:28)
[2019-01-05] MEDS: BuPROPion HCL XL 150 MG ER TABLET PO SCH (09:28)
== END 2019-01-05 10:23 | disposition home or self-care (01) | DRG 751 ==
LOC: EMS 07:38 → B3A 11:50 → UNDODISIN 01-02 13:28 → B3A 01-02 13:28
DX: F33.2 Major depressive disorder, recurrent severe without psychotic features (principal); R45.851 Suicidal ideations; K21.9 Gastro-esophageal reflux disease without esophagitis; N40.1 Benign prostatic hyperplasia with lower urinary tract symptoms; R33.8 Other retention of urine; F10.10 Alcohol abuse, uncomplicated; D64.9 Anemia, unspecified; E78.5 Hyperlipidemia, unspecified; F41.9 Anxiety disorder, unspecified; M54.30 Sciatica, unspecified side; Z59.0 Homelessness; Z71.41 Alcohol abuse counseling and surveillance of alcoholic; Z79.899 Other long term (current) drug therapy
CPT/HCPCS: 83036; 84443; G0480